=== PATIENT | male | born 1975 | race Two or more races ===

== ENCOUNTER → 2020-05-06 | Emergency (ER) | payer SELFPAY ==
[~2020-05-06] VITALS: Ht 165.1 cm; Wt 72.6 kg
[~2020-05-06] MED LIST: BACTRIM DS TAB1 EAC1 ORAL; CEPHALEXIN500 MG ORAL; NIZORAL 2% C1 APPLIC TOPIC; TYLENOL EXTRA500 MG ORAL
[2020-05-06 12:50] VITALS: BP 157/89
[2020-05-06 13:00] VITALS: BP 157/89
--- NOTE | 2020-05-06 13:00 | NUR ---
ED Nurse Note: Pt walked in to ED from home c/o pain and small lump to posterior left ear onset today. Pt also c/o headache/ nausea. Denies vomiting. AAOx4, verbally responsive. ERPA at bedside.
--- NOTE | 2020-05-06 13:53 | Emergency Room Report ---
History of Present Illness General Chief Complaint: Headache Source: Patient Present Illness HPI 44-year-old male presents to the emergency department complaining of 8 out of 10 severity pain, swelling, erythema and tenderness to the scalp behind the right ear as well as several itchy scabbed lesions throughout his scalp. Patient reports symptoms x4 days. Patient reports fevers this morning and states that he took Tylenol which did reduce his fever. Patient denies allergies to antibiotics. He denies significant past medical history. Patient denies ear pain, tenderness or loss of hearing. Denies photophobia, nausea, vomiting, neck pain/stiffness or headaches. Allergies: Coded Allergies: No Known Allergies (Unverified , 05/06/20) COVID-19 Screening Contact w/high risk pt: No Experienced COVID-19 symptoms?: No COVID-19 Testing performed QC CHEMIST: No Patient History Past Medical History: see triage record Past Surgical History: none Pertinent Family History: none Immunizations: UTD Reviewed Nursing Documentation: PMH: Agreed; PSxH: Agreed Nursing Documentation-PMH Past Medical History: No Stated History Review of Systems All Other Systems: negative except mentioned in HPI Physical Exam Vital Signs Date Time Temp Pulse Resp B/P (MAP) Pulse Ox O2 Delivery O2 Flow Rate FiO2 05/06/20 12:50 99.0 111 20 157/89 (111) 96 Room Air Sp02 EP Interpretation: reviewed, normal General Appearance: no apparent distress, alert, GCS 15, non-toxic, other - Mildly disheveled Head: normocephalic, other - TTP, swelling, erythema and tenderness to the scalp behind the right ear as well as several itchy scabbed lesions throughout his scalp. Eyes: bilateral eye normal inspection, bilateral eye PERRL, bilateral eye EOMI, bilateral eye other - no photophobia ENT: hearing grossly normal, normal voice Neck: full range of motion, no meningismus Respiratory: lungs clear, normal breath sounds, speaking full sentences Cardiovascular #1: regular rate, rhythm Musculoskeletal: normal range of motion, gait/station normal, non-tender Neurologic: alert, motor strength/tone normal, oriented x3, sensory intact, responsive, speech normal, normal gait, grossly normal, sensory deficit, no focal defects Psychiatric: judgement/insight normal Skin: rash - TTP, swelling, erythema and tenderness to the scalp behind the right ear as well as several itchy scabbed lesions throughout his scalp. Crusting noted. NO blisters or vessicles. , other Medical Decision Making PA Attestation Dr. Hester is my supervising Physician whom patient management has been discussed with. Diagnostic Impression: Primary Impression: Cellulitis Qualified Codes: L03.811 - Cellulitis of head [any part, except face] Additional Impression: Tinea capitis ER Course 44-year-old male presents to the emergency department complaining of 8 out of 10 severity pain, swelling, erythema and tenderness to the scalp behind the right ear as well as several itchy scabbed lesions throughout his scalp. Patient reports symptoms x4 days. Patient reports fevers this morning and states that he took Tylenol which did reduce his fever. Patient denies allergies to a ntibiotics. He denies significant past medical history. Patient denies ear pain, tenderness or loss of hearing. Denies photophobia, nausea, vomiting, neck pain/stiffness or headaches. Ddx considered but are not limited to cellulitis, Necrotizing fasciitis, allergic reaction, burn, dermatitis, tinea, LAD, mastoiditis just to name a few. Vital signs: Pt. is tachycardic, remaining VS are WNL, pt. is afebrile H&PE are most consistent with cellulitis, suspicious for MRSA vs. tinea ORDERS: none required at this time, the diagnosis is clinical ED INTERVENTIONS: None required at this time. DISCHARGE: At this time pt. is stable for d/c to home. Will provide printed patient care instructions, and any necessary prescriptions. Care plan and follow up instructions have been discussed with the patient prior to discharge. Last Vital Signs Date Time Temp Pulse Resp B/P (MAP) Pulse Ox O2 Delivery O2 Flow Rate FiO2 05/06/20 12:50 99.0 111 20 157/89 (111) 96 Room Air Disposition: HOME, SELF-CARE Condition: Stable Scripts Acetaminophen* (TYLENOL EXTRA STRENGTH*) 500 Mg Tablet 500 MG ORAL Q6H PRN for Mild Pain/Temp > 100.5, #30 TAB 0 Refills Prov: Danyelle Anders 05/06/20 Ketoconazole (Ketoconazole) 15 Gm Cream..g. 1 APPLIC TOPIC BID, #15 APPLIC Prov: Danyelle Anders 05/06/20 Trimethoprim/Sulfamethoxazole 160/800* (BACTRIM DS TABLET*) 1 Each Tablet 1 TAB ORAL TWICE A DAY for 7 Days, #14 TAB Prov: Danyelle Anders 05/06/20 Cephalexin* (KEFLEX*) 500 Mg Capsule 7 MG ORAL EVERY 12 HOURS, #14 CAP 0 Refills Prov: Danyelle Anders 05/06/20 Referrals: Raina [facility] + [facility] Patient Instructions: Cellulitis, [id number] Additional Instructions: Take medications as directed. Follow up with a Primary Care Provider in 3-5 days for DERMATOLOGY REFERRAL, even if your symptoms have resolved. --Please review list of primary care clinics, if you do not already have a primary care provider Return sooner to ED if new symptoms occur, or current symptoms become worse. - Please note that this Emergency Department Report was dictated using [employer] technology software, occasionally this can lead to erroneous entry secondary to interpretation by the dictation equipment. Danyelle Anders May 06, 2020 13:53
== END | disposition home or self-care (01) ==
LOC: EMR 13:40
DX: L03.811 Cellulitis of head [any part, except face] (principal); B35.0 Tinea barbae and tinea capitis
CPT/HCPCS: 99282